=== PATIENT | male | born 1965 | race Two or more races ===

== ENCOUNTER 2020-02-24 17:45 | Emergency (ER) | payer SELFPAY ==
[~2020-02-24] VITALS: Ht 167.6 cm; Wt 82.0 kg
[2020-02-24 17:55] VITALS: BP 170/108
== END 2020-02-24 18:23 | disposition left against medical advice (07) ==
LOC: EDBD 17:45 → ER 17:45
DX: R42 Dizziness and giddiness (principal); R53.1 Weakness; R73.9 Hyperglycemia, unspecified
CPT/HCPCS: 82962; 99283

== ENCOUNTER 2021-07-18 11:34 | Inpatient (IN) | payer MEDICAID ==
[~2021-07-18] VITALS: Ht 160 cm; Wt 56.7 kg
[2021-07-18] MEDS: ENOXAPARIN 30MG/0.3ML SYR SUBCUT SCH (01:30)
[2021-07-18 13:11] LABS: BASOPHILS % 0.8 % (0.0-2.0); EOSINOPHILS % 3.7 % (0.0-5.0); HEMATOCRIT. 36.5 % (42.0-52.0); HEMOGLOBIN. 11.9 g/dL (14.0-18.0); LYMPHOCYTES % 9.4 % (20.0-50.0); MEAN CORPUSCULAR HEMOGLOBIN 30.8 pg (28.0-32.0); MEAN CORPUSCULAR VOLUME 94.3 fL (80.0-94.0); MEAN PLATELET VOLUME 9.4 fl (7.4-10.4); MONOCYTES % 8.3 % (2.0-8.0); NEUTROPHILS % 77.8 % (40.0-76.0); PLATELET 199 x1000/uL (130-400); RED BLOOD CELL COUNT 3.87 mill/uL (4.7-6.1); RED CELL DISTRIBUTION WIDTH 18.4 % (11.6-14.6)
[2021-07-18] MEDS ORDERED: NITROGLYCERIN 0.1MG/HR PATCH TOP ONE (14:45)
[2021-07-18] MEDS ORDERED: ACETAMINOPHEN 325MG TABLET PO PRN (15:15)
[2021-07-18] MEDS ORDERED: DEXTROSE 50% WATER 50ML SYRINGE IV PRN (16:00)
[2021-07-18 16:12] LABS: HEPATITIS B SURFACE ANTIGEN NEGATIVE
[2021-07-18] MEDS: INSULIN LISPRO 100 UNITS/ML SUBCUT SCH ×2 (16:15→20:23)
[2021-07-18] MEDS ORDERED: HYDRALAZINE 20MG/ML VIAL IV NR (17:00)
[2021-07-18] MEDS ORDERED: HYDRALAZINE 20MG/ML VIAL ONE (17:03)
[2021-07-18] MEDS ORDERED: HYDRALAZINE 20MG/ML VIAL IV PRN (17:30)
[2021-07-18 20:00] VITALS: BP 154/90
[2021-07-18] MEDS: AMLODIPINE 10MG TABLET PO SCH (20:00)
[2021-07-18] MEDS: BLOOD SUGAR DIAGNOSTIC STRIP TEST SCH (20:21)
[2021-07-18] MEDS: ACETAMINOPHEN 325MG TABLET PO PRN (20:22)
[2021-07-18] MEDS ORDERED: ONDANSETRON HCL 4MG/2ML INJ IV PRN (22:45)
[2021-07-18] MEDS ORDERED: DIPHENHYDRAMINE 25MG CAPSULE PO PRN (22:45)
[2021-07-18] MEDS: HYDROCODONE/ACETAMINOPHEN 5/325MG TABLET PO PRN (22:50)
[2021-07-19] VITALS: BP 147/78
[2021-07-19] MEDS: HYDROCODONE/ACETAMINOPHEN 5/325MG TABLET PO PRN ×2 (03:54→09:03)
[2021-07-19 04:15] VITALS: BP 159/89
[2021-07-19] MEDS: BLOOD SUGAR DIAGNOSTIC STRIP TEST SCH ×4 (06:27→21:00)
[2021-07-19] MEDS: INSULIN LISPRO 100 UNITS/ML SUBCUT SCH ×4 (06:28→21:00)
[2021-07-19 08:00] VITALS: BP 156/86
[2021-07-19 08:41] LABS: BASOPHILS % 1.7 % (0.0-2.0); EOSINOPHILS % 6.4 % (0.0-5.0); HEMATOCRIT. 38.3 % (42.0-52.0); HEMOGLOBIN. 12.8 g/dL (14.0-18.0); LYMPHOCYTES % 15.7 % (20.0-50.0); MEAN CORPUSCULAR HEMOGLOBIN 30.5 pg (28.0-32.0); MEAN CORPUSCULAR VOLUME 91.7 fL (80.0-94.0); MEAN PLATELET VOLUME 9.4 fl (7.4-10.4); MONOCYTES % 8.1 % (2.0-8.0); NEUTROPHILS % 68.1 % (40.0-76.0); PLATELET 215 x1000/uL (130-400); RED BLOOD CELL COUNT 4.18 mill/uL (4.7-6.1); RED CELL DISTRIBUTION WIDTH 17.4 % (11.6-14.6)
[2021-07-19 08:52] LABS: CHLORIDE 105 mEq/L (98-107)
[2021-07-19 08:59] LABS: TOTAL IRON BINDING CAPACITY 232 ug/dL (250-450)
[2021-07-19 09:00] LABS: CREATINE KINASE 46 IU/L (39-308); HDL CHOLESTEROL 38 mg/dL (40-59); LDL CHOLESTEROL 136 mg/dL (5-100)
[2021-07-19] MEDS: AMLODIPINE 10MG TABLET PO SCH (09:02)
[2021-07-19 09:12] LABS: FOLIC ACID (FOLATE) SERUM 13.1 ng/mL (>5.38)
[2021-07-19] MEDS ORDERED: INFLUENZA VACCINE 05/PF 0.5 ML SYRINGE IM ONE (10:00)
[2021-07-19 12:00] VITALS: BP 148/78
[2021-07-19] MEDS: LISINOPRIL 5MG TABLET PO SCH (12:45)
[2021-07-19] MEDS: ENOXAPARIN 30MG/0.3ML SYR SUBCUT SCH (15:07)
[2021-07-19 16:00] VITALS: BP 136/74
[2021-07-19] MEDS: POLYETHYLENE GLYCOL 3350 (17GM) 1 DOSE PACK PO SCH (17:26)
[2021-07-19 20:00] VITALS: BP 135/76
[2021-07-19] MEDS ORDERED: INSULIN GLARGINE UD 100 UNITS/ML SYR SUBCUT SCH (22:00)
[2021-07-19] MEDS: METOPROLOL TARTRATE 25MG TABLET PO SCH (22:10)
[2021-07-20] VITALS: BP 122/65
[2021-07-20 04:00] VITALS: BP 125/71
[2021-07-20] MEDS: BLOOD SUGAR DIAGNOSTIC STRIP TEST SCH ×4 (07:10→21:35)
[2021-07-20 07:28] LABS: BASOPHILS % 1.3 % (0.0-2.0); EOSINOPHILS % 5.8 % (0.0-5.0); HEMATOCRIT. 37.5 % (42.0-52.0); HEMOGLOBIN. 12.1 g/dL (14.0-18.0); LYMPHOCYTES % 8.7 % (20.0-50.0); MEAN CORPUSCULAR HEMOGLOBIN 30.1 pg (28.0-32.0); MEAN CORPUSCULAR VOLUME 93.1 fL (80.0-94.0); MEAN PLATELET VOLUME 9.2 fl (7.4-10.4); MONOCYTES % 9.5 % (2.0-8.0); NEUTROPHILS % 74.7 % (40.0-76.0); PLATELET 217 x1000/uL (130-400); RED BLOOD CELL COUNT 4.03 mill/uL (4.7-6.1); RED CELL DISTRIBUTION WIDTH 18.3 % (11.6-14.6)
[2021-07-20 07:35] LABS: PHOSPHORUS 5.4 mg/dL (2.5-4.9)
[2021-07-20 08:23] VITALS: BP 122/80
[2021-07-20] MEDS: POLYETHYLENE GLYCOL 3350 (17GM) 1 DOSE PACK PO SCH (09:00)
[2021-07-20] MEDS ORDERED: METOPROLOL TARTRATE 25MG TABLET PO NR (09:30)
[2021-07-20] MEDS: INSULIN LISPRO 100 UNITS/ML SUBCUT SCH ×7 (09:42→21:00)
[2021-07-20] MEDS: METOPROLOL TARTRATE 25MG TABLET PO SCH ×2 (09:45→21:48)
[2021-07-20] MEDS: ASPIRIN 81MG TABLET PO SCH (09:46)
[2021-07-20] MEDS: AMLODIPINE 10MG TABLET PO SCH (09:46)
[2021-07-20] MEDS: LISINOPRIL 5MG TABLET PO SCH (09:49)
[2021-07-20 11:28] VITALS: BP 138/75
[2021-07-20 15:56] VITALS: BP 120/69
[2021-07-20] MEDS: ENOXAPARIN 30MG/0.3ML SYR SUBCUT SCH (17:20)
[2021-07-20 20:00] VITALS: BP 120/72
[2021-07-20] MEDS: INSULIN GLARGINE UD 100 UNITS/ML SYR SUBCUT SCH (23:46)
[2021-07-21] VITALS: BP 115/66
[2021-07-21 04:00] VITALS: BP 139/76
[2021-07-21] MEDS: BLOOD SUGAR DIAGNOSTIC STRIP TEST SCH ×4 (05:55→21:26)
[2021-07-21] MEDS: INSULIN LISPRO 100 UNITS/ML SUBCUT SCH ×7 (06:17→21:41)
[2021-07-21 07:53] LABS: BASOPHILS % 1.9 % (0.0-2.0); EOSINOPHILS % 6.5 % (0.0-5.0); HEMATOCRIT. 34.9 % (42.0-52.0); HEMOGLOBIN. 11.2 g/dL (14.0-18.0); LYMPHOCYTES % 17.2 % (20.0-50.0); MEAN CORPUSCULAR HEMOGLOBIN 30.4 pg (28.0-32.0); MEAN CORPUSCULAR VOLUME 94.5 fL (80.0-94.0); MEAN PLATELET VOLUME 9.9 fl (7.4-10.4); MONOCYTES % 11.7 % (2.0-8.0); NEUTROPHILS % 62.7 % (40.0-76.0); PLATELET 217 x1000/uL (130-400); RED CELL DISTRIBUTION WIDTH 18.4 % (11.6-14.6)
[2021-07-21 08:00] VITALS: BP 132/74
[2021-07-21] MEDS: ASPIRIN 81MG TABLET PO SCH (08:17)
[2021-07-21] MEDS: LISINOPRIL 5MG TABLET PO SCH (08:17)
[2021-07-21] MEDS: AMLODIPINE 10MG TABLET PO SCH (08:18)
[2021-07-21] MEDS: POLYETHYLENE GLYCOL 3350 (17GM) 1 DOSE PACK PO SCH (08:18)
[2021-07-21] MEDS: METOPROLOL TARTRATE 25MG TABLET PO SCH ×2 (08:18→21:38)
[2021-07-21] MEDS ORDERED: METOPROLOL TARTRATE 25MG TABLET PO NR (09:00)
[2021-07-21] MEDS ORDERED: NITROGLYCERIN SPRAY/4.9GM CAN TL ONE (09:15)
[2021-07-21] MEDS ORDERED: IOHEXOL-350 100 ML BOTTLE ONE (10:23)
[2021-07-21 12:00] VITALS: BP 117/66
[2021-07-21] MEDS: ACETAMINOPHEN 325MG TABLET PO PRN (12:51)
[2021-07-21 16:00] VITALS: BP 124/65
[2021-07-21] MEDS: ENOXAPARIN 30MG/0.3ML SYR SUBCUT SCH (17:50)
[2021-07-21 20:00] VITALS: BP 140/69
[2021-07-21] MEDS: INSULIN GLARGINE UD 100 UNITS/ML SYR SUBCUT SCH (21:39)
[2021-07-22 00:01] VITALS: BP 127/73
[2021-07-22 04:07] VITALS: BP 128/68
[2021-07-22] MEDS: BLOOD SUGAR DIAGNOSTIC STRIP TEST SCH ×2 (06:21→12:10)
[2021-07-22] MEDS: INSULIN LISPRO 100 UNITS/ML SUBCUT SCH ×5 (06:21→13:19)
[2021-07-22 08:00] VITALS: BP 144/67
[2021-07-22] MEDS: POLYETHYLENE GLYCOL 3350 (17GM) 1 DOSE PACK PO SCH (08:56)
[2021-07-22] MEDS: ASPIRIN 81MG TABLET PO SCH (08:57)
[2021-07-22] MEDS: AMLODIPINE 10MG TABLET PO SCH (08:57)
[2021-07-22] MEDS: METOPROLOL TARTRATE 25MG TABLET PO SCH (08:57)
[2021-07-22] MEDS: LISINOPRIL 5MG TABLET PO SCH (08:57)
[2021-07-22 10:44] LABS: BASOPHILS % 1.1 % (0.0-2.0); EOSINOPHILS % 3.5 % (0.0-5.0); HEMATOCRIT. 39.7 % (42.0-52.0); HEMOGLOBIN. 12.8 g/dL (14.0-18.0); LYMPHOCYTES % 7.9 % (20.0-50.0); MEAN CORPUSCULAR HEMOGLOBIN 30.5 pg (28.0-32.0); MEAN CORPUSCULAR VOLUME 94.8 fL (80.0-94.0); MEAN PLATELET VOLUME 9.4 fl (7.4-10.4); MONOCYTES % 7.3 % (2.0-8.0); NEUTROPHILS % 80.2 % (40.0-76.0); PLATELET 223 x1000/uL (130-400); RED BLOOD CELL COUNT 4.19 mill/uL (4.7-6.1); RED CELL DISTRIBUTION WIDTH 18.5 % (11.6-14.6)
[2021-07-22 11:10] LABS: PHOSPHORUS 5.3 mg/dL (2.5-4.9)
[2021-07-22 12:00] VITALS: BP 144/73
[2021-07-22] MEDS: ENOXAPARIN 30MG/0.3ML SYR SUBCUT SCH (15:06)
[2021-07-22 15:32] VITALS: BP 144/73
[2021-07-22 16:00] VITALS: BP 128/70
== END 2021-07-22 18:15 | disposition home or self-care (01) | DRG 470 ==
LOC: ER 11:43 → 8WST 14:41 → SUPCPDRO 15:02 → ENRESERV 17:15
PROVIDERS: ADMIT Internal Medicine; ATTEND Internal Medicine
PROC: 5A1D70Z Performance of Urinary Filtration, Intermittent, Less than 6 Hours Per Day (ICD-10-PCS; principal; 2021-07-18)
PROC: 5A1D70Z Performance of Urinary Filtration, Intermittent, Less than 6 Hours Per Day (ICD-10-PCS; 2021-07-21)
DX: I13.11 Hypertensive heart and chronic kidney disease without heart failure, with stage 5 chronic kidney disease, or end stage renal disease (principal); N18.6 End stage renal disease; E11.22 Type 2 diabetes mellitus with diabetic chronic kidney disease; E44.1 Mild protein-calorie malnutrition; D63.1 Anemia in chronic kidney disease; D53.9 Nutritional anemia, unspecified; E78.00 Pure hypercholesterolemia, unspecified; E78.5 Hyperlipidemia, unspecified; R77.8 Other specified abnormalities of plasma proteins; E87.5 Hyperkalemia; Z99.2 Dependence on renal dialysis; Z56.0 Unemployment, unspecified; R79.89 Other specified abnormal findings of blood chemistry; Z68.22 Body mass index [BMI] 22.0-22.9, adult
CPT/HCPCS: 36415; 71045; 75571; 80048; 80061; 80076; 82550; 82553; 82607; 82728; 82746; 82962; 83036; 83540; 83550; 83735; 83880; 84100; 84439; 84443; 84484; 85025; 85379; 86705; 86709; 86803; 87340; 90686; 93005; 93306; 99285; J0360; J1650; J1815; Q9967

== ENCOUNTER 2023-09-15 16:02 | Emergency (ER) | payer MEDICAID ==
[~2023-09-15] VITALS: Ht 167.6 cm; Wt 61.0 kg
[2023-09-15 16:08] VITALS: BP 150/87; PULSE 89; RESP 20; TEMP 96.6; O2SAT 100
[2023-09-15] MEDS ORDERED: ACETAMINOPHEN 325MG TABLET PO STA (16:17)
[2023-09-15 16:58] LABS: BASOPHILS % 2.3 % (0.0-2.0); EOSINOPHILS % 5.5 % (0.0-5.0); HEMATOCRIT. 33.8 % (42.0-52.0); HEMOGLOBIN. 11.3 g/dL (14.0-18.0); LYMPHOCYTES % 8.8 % (20.0-50.0); MEAN CORPUSCULAR HEMOGLOBIN 32.6 pg (28.0-32.0); MEAN CORPUSCULAR HGB CONC 33.6 g/dL (31.0-37.0); MEAN PLATELET VOLUME 8.5 fl (7.4-10.4); MONOCYTES % 6.5 % (2.0-8.0); NEUTROPHILS % 76.9 % (40.0-76.0); PLATELET 290 x1000/uL (130-400); RED BLOOD CELL COUNT 3.48 mill/uL (4.7-6.1); WHITE BLOOD COUNT 7.3 x1000/uL (4.5-11.0)
[2023-09-15 17:24] LABS: ALANINE AMINOTRANSFERASE 33 IU/L (10-49); ASPARTATE AMINOTRANSFERASE 25 IU/L (<34); BILIRUBIN TOTAL 0.7 mg/dL (0.1-1.0); CALCIUM 9.7 mg/dL (8.7-10.4); CARBON DIOXIDE 28 mEq/L (21-32); CHLORIDE 96 mEq/L (98-107); CREATININE 4.1 mg/dL (0.6-1.3); GLUCOSE 155 mg/dL (70-105); POTASSIUM 3.3 mEq/L (3.5-5.1); PROTEIN TOTAL 7.8 g/dL (6.0-8.3); SODIUM 136 mEq/L (136-145); UREA NITROGEN BLOOD 17 mg/dL (9-23)
== END 2023-09-15 19:00 | disposition left against medical advice (07) ==
LOC: ER 16:02
DX: R10.9 Unspecified abdominal pain (principal); I12.0 Hypertensive chronic kidney disease with stage 5 chronic kidney disease or end stage renal disease; E11.22 Type 2 diabetes mellitus with diabetic chronic kidney disease; N18.6 End stage renal disease; Z99.2 Dependence on renal dialysis
CPT/HCPCS: 36415; 80053; 83605; 85025; 99283